=== PATIENT | female | born 1995 | race Caucasian/White ===

== ENCOUNTER → 2017-06-30 18:45 | Observation (INO) ==
--- NOTE | 2017-06-30 16:44 | OB/GYN Progress Note ---
Date of Encounter: 06/30/17 Time of Encounter: 16:39 - Assessment and Plan (1) 38 weeks gestation of Current Visit: Yes Status: Acute (2) Amniotic fluid leaking Current Visit: Yes Status: Acute SSE with physiologic appearing discharge. No pooling, negative nitrazine, negative fern. (3) Uterine contractions Current Visit: Yes Status: Acute Initial SVE 80/-1. Will repeat SVE in 1-2 hours. Subjective - Subjective Principal diagnosis: leaking, back pain Interval history: 22 year-old presenting at 38w4d with c/o leaking fluid and lower back cramping since 10pm last evening. She denies any large gushes of fluid but reports constant small amounts of fluid. No bleeding or other complaints. Good FM. Antepartum ROS: loss of fluid, movement normal, contractions, no vaginal bleeding Objective - Vital Signs Vital Signs: Intake and Output 06/30/17 06/30/17 06/30/17 07:59 15:59 23:59 Other: Weight 65.3 kg Patient Weight 06/30/17 23:59 Weight 65.3 kg - Exam FHR: category 1 FHR comments: 145 BPM reactive NST Auscultation: bilateral: normal Abdomen: Present: soft Uterus: Present: normal Cervical dilation: 3 Cervix effacement: 80 station: -1
[2017-06-30 17:27] LABS: Amphetamine Screen,Urine Negative ng/mL (Cutoff=1000); Barbiturate Screen,Urine Negative ng/mL (Cutoff=200); Benzodiazepines Screen,Urine Negative ng/mL (Cutoff=200); Cannabinoid Screen,Urine Negative ng/mL (Cutoff = 50); Cocaine Screen,Urine Negative ng/mL (Cutoff= 300); Opiate Screen,Urine Negative ng/mL (Cutoff=300); Phencyclidine Screen,Urine Negative ng/mL (Cutoff=25)
== END | disposition home or self-care (01) ==
LOC: 1NENULAB
PROVIDERS: ADMIT Student in an Organized Health Care Education/Training Program; ATTEND Student in an Organized Health Care Education/Training Program

== ENCOUNTER 2017-07-02 21:55 | Inpatient (IN) ==
[~2017-07-02 21:55] MED LIST: Famotidine 20 MG/2 ML VIAL IVP PRN; Naloxone 0.4 MG/ML INJ IVP PRN; Ondansetron 4 MG/2 ML VIAL IVP PRN
[2017-07-02] MEDS ORDERED: Ringers Solution, Lactated 1,000 ML IVC SCH (22:00)
[2017-07-02 22:14] LABS: Basophils # 0.1 K/mcL (0.0-0.2); Basophils % 0.6 %; Eosinophils # 0.2 K/mcL (0.0-0.6); Eosinophils % 2.1 %; Hematocrit 36.9 % (35.3-44.9); Immature Granulocytes % 1.1 % (0-4); Immature Platelets 9.7 % (1.1-6.1); Lymphocytes # 3.2 K/mcL (0.6-4.6); Lymphocytes % 28.5 %; Mean Corpuscular HGB Conc 35.2 g/dL (31.6-35.5); Mean Corpuscular Hemoglobin 32.2 pg (28.0-33.3); Mean Corpuscular Volume 91.3 fL (83.0-100.0); Mean Platelet Volume 11.3 fL (9.4-12.4); Monocytes # 0.9 K/mcL (0.0-1.3); Monocytes % 8.2 %; Neutrophils # 6.7 K/mcL (1.6-8.9); Platelet Count 212 K/mcL (140-400); Red Blood Count 4.04 M/mcL (3.82-4.97); Red Cell Distribution Width 11.9 % (11.5-14.5); Segmented Neutrophils % 59.5 %
[2017-07-02 22:26] LABS: Amphetamine Screen,Urine Negative ng/mL (Cutoff=1000); Barbiturate Screen,Urine Negative ng/mL (Cutoff=200); Benzodiazepines Screen,Urine Negative ng/mL (Cutoff=200); Cannabinoid Screen,Urine Negative ng/mL (Cutoff = 50); Cocaine Screen,Urine Negative ng/mL (Cutoff= 300); Opiate Screen,Urine Negative ng/mL (Cutoff=300); Phencyclidine Screen,Urine Negative ng/mL (Cutoff=25)
--- NOTE | 2017-07-02 22:36 | OB/GYN History & Physical ---
Date of Encounter: 07/02/17 Time of Encounter: 22:32 Assessment and Plan (1) 38 weeks gestation of Current visit: No Status: Acute (2) Amniotic fluid leaking Current visit: No Status: Acute SSE +pooling, +nitrazine, +fern Admit for expectant managment. Allow ambulation with intermittent monitoring at this time. Will augment with cytotec or pitocin if needed for adequate contractions. GBS negative. Anticipate . History of Present Illness Chief complaint: leaking fluid HPI: Ms. Bowling is a 22 year old female presenting at 38w6d with c/o a gush of clear/cloudy fluid at 8:32pm. She denies regular contractions, VB or other complaints. Good FM. This was complicated by a marginal placenta previa that spontaneously resolved. Blood type A positive. GBS negative, Rubella and varicella immune. HIV,Tpal, and Hep B negative. Past Med Surg Social Fam HX - Past Medical History Medical history: no medical history Psychiatric history: no psych history - Past Surgical History Surgical History: other - Social History Smoking Status: Never smoker Smokeless Tobacco Status: No Alcohol use: none Drug use: none - Family History Mother Adopted: No Family Member Ethnicity: Non- Living Status: Still Living Hx Family Cardiac Disorders: No Hx Family Respiratory Disorders: No Hx Family Cancer: No Hx Family GI Disorders: No Hx Family Genitourinary Disorders: No Hx Family Endocrine Disorder: No Hx Family Musculoskeletal Disorders: No Hx Family Neuromuscular Disorders: No Hx Family Neurologic Disorders: No Hx Family HEENT Disorders: No Hx Family Autoimmune Disorders: No Hx Family Reproductive Disorders: No Hx Family Psychosocial Disorders: No Hx Family Medical Disorders: No Obstetrical History - Pregnancies : 1 Medications and Allergies Calcium Carbonate [Tums] 500 mg PO Q4H PRN 06/30/17 [History] Vit/Iron Fumarate/FA [ Tablet] 1 each PO DAILY 06/30/17 [ History] Ranitidine HCl [Zantac] 150 mg PO BID PRN 06/30/17 [History] 3 Allergy/AdvReac Type Severity Reaction Status Date / Time No Known Allergies Allergy Verified 06/30/17 15:59 Review of System OB All systems PM: reviewed and no additional remarkable complaints except as stated - Constitutional Constitutional ROS IM: as per HPI Exam - Constitutional Constitutional: well developed, well nourished, no acute distress - HEENT HEENT: Mucus Membranes Moist - Lungs Respiratory exam: CTAB - Cardiovascular Cardiovascular exam: RRR - Abdomen Abdomen: Present: gravid, non tender - Extremities Extremities exam: normal inspection - Vulva Vulva: bilateral: normal - Vagina Vagina: Present: normal moisture (SSE with +pooling, +nitrazine, +fern) - Cervix Dilation: 3 (3-4) Effacement: 80 Station: -2 - Uterus Uterus exam: Present: normal size - Anus/Rectum Anus/Rectum: Present: normal perianal skin Results Result Diagrams: 07/02/17 10:05 Abnormal lab results WBC 11.3 K/mcL (4.3-11.1) H 07/02/17 10:05 Immature Plt Fraction 9.7 % (1.1-6.1) H 07/02/17 10:05 All other labs normal. - VTE Reasons for not Prescribing Prophylaxis: Treatment not Indicated - Low risk for VTE
--- NOTE | 2017-07-02 23:34 | OB Labor Progress Note ---
Date of Encounter: 07/02/17 Time of Encounter: 23:33 Labor Progress Note - Subjective Subjective: Pt reports mild discomfort with contractions. - Cervix Cervix: 3-4/80/-1 - Heart Tones Heart Tones: Category I - [place]: irregular - Plan Plan: Will allow pt to ambulate in hallway and then begin augmentation of labor.
[2017-07-03] MEDS ORDERED: miSOPROStol 100 MCG TABLET PO SCH
[2017-07-03] MEDS ORDERED: Oxytocin 20 units/ LR 1000 mL 20 UNIT/1,000 ML BAG IVC SCH ×2 (00:30→12:20)
--- NOTE | 2017-07-03 00:56 | OB Labor Progress Note ---
Date of Encounter: 07/03/17 Time of Encounter: 00:55 Labor Progress Note - Subjective Subjective: Pt reports increasing discomfort with contractions. - Cervix Cervix: 4-5/90/-1 - Heart Tones Heart Tones: Category I - [place]: irregular - Interventions Interventions: IUPC placed. - Plan Plan: Plan for pitocin augmentation. Epidural when requested. Anticipate .
[2017-07-03] MEDS ORDERED: *HR* FentaNYL (PF) 100 MCG/2 ML VIAL EP ONE (01:23)
[2017-07-03] MEDS ORDERED: Naloxone 0.4 MG/ML INJ IVP PRN (01:23)
[2017-07-03] MEDS ORDERED: Ondansetron 4 MG/2 ML VIAL IVP PRN (01:23)
[2017-07-03] MEDS ORDERED: Bupivacaine-MPF 0.25% 10 ML VIAL EP ONE (01:23)
[2017-07-03] MEDS ORDERED: EPHEDrine 50 MG/ML VIAL IVP PRN (01:23)
[2017-07-03] MEDS ORDERED: Epidural Premix (fent/bupiv) 110 ML EP SCH (01:30)
[2017-07-03] MEDS ORDERED: Bupivacaine-MPF 0.25% 10 ML VIAL ONE (01:36)
[2017-07-03] MEDS ORDERED: *HR* FentaNYL (PF) 100 MCG/2 ML VIAL ONE (01:36)
[2017-07-03] MEDS ORDERED: Epidural Premix (fent/bupiv) 110 ML EP ONE ×2 (01:38→09:01)
--- NOTE | 2017-07-03 03:00 | Anesthesia Evaluation PreOp ---
Date of Encounter: 07/03/17 Time of Encounter: 01:55 - Past History Planned Operation: BEULAH Cardiac History: Denies any Significant Hx Pulmonary History: Denies Any Significant HX SHOW HORSE DRIVER History: Denies Any Significant HX Other Medical History: GERD Anesthesia History: No Prior Anesthetic Complications, Past Anesthesia (wisdom teeth extraction) : Yes Alcohol Use: none Drug use: none Medications and Allergies Calcium Carbonate [Tums] 500 mg PO Q4H PRN 06/30/17 [History] Vit/Iron Fumarate/FA [ Tablet] 1 each PO DAILY 06/30/17 [ History] Ranitidine HCl [Zantac] 150 mg PO BID PRN 06/30/17 [History] 3 Allergy/AdvReac Type Severity Reaction Status Date / Time No Known Allergies Allergy Verified 06/30/17 15:59 - Meds/Allergy Pre-op Review Medications Reviewed: Yes Allergies Reviewed: Yes Beta Blockers on Current Med List: No Anesthesia Results - Labs 07/02/17 10:05 Anesthesia Exam BP 142/82 R 18 T 98.7 P 101 Height: 5'6" Weight: 65.3kg NPO (# of Hours): 4 Pain Scale: 8 Pain Scale Used: Numeric (1 - 10) - HEENT Pupil (Motor): Pupils equal Mallampati: II Teeth: Normal Oral Opening: Greater than 3 - SHOW HORSE DRIVER LOC: Oriented SHOW HORSE DRIVER Motor: Normal RUE, Normal LUE, Normal RLE, Normal LLE, Normal Face SHOW HORSE DRIVER Sensory: Normal: RUE, LUE, RLE, LLE, Face - Cardiac Rhythm: Regular Murmur: None JVD: No Carotid Bruit: No - Pulmonary Breath Sounds: bilateral Clear Respiratory Effort: Symmetrical Anesthesia Assess/Plan ASA Score: 2 Modified Charles Scale for Level of Consciousness: Cooperative, oriented, and tranquil Anesthetic Plan: Regional Autologous Blood: No Monitoring Plan: Standard Monitors Recovery Plan: Other
--- NOTE | 2017-07-03 03:05 | Anesthesia Procedures ---
Date of Encounter: 07/03/17 Time of Encounter: 01:55 Procedures: Anesthesia - Epidural/Spinal Patient ID/Chart reviewed: Yes Patient examined: Yes OB Eval: Gestational age: 39 OB Eval: : 1 OB Eval: Hx Para: 0 OB Eval: Dilated at (cm): 5 OB Eval: Contractions: Non-stressed pattern Consent Obtained: Yes Supplemental Oxygen: None/Room Air Site Prep: Aseptic Technique, Sterile prep and drape, Povidone-Iodine 1% Patient position: upright Local Anesthetic: Lidocaine 1% Amount of Local Anesthetic used: 3 Touhy Needle Gauge: 18 Touhy Needle Depth (cm): 5 Catheter Depth at Skin (cm): 14 Test Dose (1.5% Lido + Epi): Volume given (mls): 3 Test Dose Result: Negative Loading Dose: 0.25% Marcaine (mls): 10 Loading Dose: Fentanyl (mcg): 100 Loading Dose Administered: Thru Catheter Infusion Med: 0.125% Bupivacaine w/ 2 mcg/ml Fentanyl Catheter Secured in Place: Tegaderm, Tape Interspace Used: L4-L5 Loss of Resistance (HIMANSHU): Yes Blood: No CSF: No Paresthesia: No Procedure: BEULAH placed 1st pass without any immediate noted complications. VSS and FHT stable throughout. Vitals + FHT's: 0155 BP 142/82 P 101 R 18 0230 BP 122/80 P 80 R 16
--- NOTE | 2017-07-03 08:57 | OB Labor Progress Note ---
Date of Encounter: 07/03/17 Time of Encounter: 08:55 Labor Progress Note - Subjective Subjective: Patient comfortable with epidural, feels contractions in her back and pressure vaginally with contractions. - Vital Signs Vital Signs: Afebrile, vital signs stable - Cervix Cervix: Complete, +1 with small amount of caput per RN - Heart Tones Heart Tones: 120 CAT1 - Valeria Valeria: Contractions every 1-3 minutes, 30-50 mmHg, Pitocin at 4 milliunits - Interventions Interventions: 39 week IUP with spontaneous rupture of membranes, now with augmentation. Patient on PNUT ball currently. She did not push well previously - Plan Plan: Laboring down, anticipate vaginal delivery
--- NOTE | 2017-07-03 11:00 | OB/GYN Procedure Note ---
Delivery - Delivery Date: 07/03/17 Provider: Donna Chapman Intrapartum events: none Delivery augmentation: pitocin Delivery monitor: external FHT, external uterine, internal uterine Anesthesia: epidural Estimated Blood Loss: 200 - (s) Infant A Delivery Date: 07/03/17 Delivery Time: 10:33 Presentation: vertex Position: DOMITILA Route of delivery: Gender: Male Viability: Viable Pounds: 6 Ounces: 15 at 1 minute: 9 at 5 mins: 9 Shoulder Dystocia: not encountered Placenta: spontaneous, uterine exploration Cord: 3 umbilical vessels - Repair Episiotomy: none Laceration Description: Vaginal, Labial (left) - Complications Delivery complications: none Delivery comments: The patient was complete and pushing with epidural anesthesia with a spontaneous vaginal delivery in the DOMITILA position of a vigorous male infant weighing 6 lbs. 15 oz. with Apgars of 9 at 1 minute and 9 at 5 minutes. was placed on maternal abdomen. Cord was clamped and cut after pulsation ceased. Placenta was delivered spontaneous and intact. Left vaginal laceration was repaired with 3-0 Vicryl in a running locking fashion. This laceration extended into the left labia and this was repaired with 3-0 Vicryl in a running non-locking fashion. Estimated blood loss 200 mL, complications none. Both mother and recovering in stable condition in the LDR - Disposition Mom disposition: stable in LDR disposition: stable in LDR
[2017-07-03] MEDS ORDERED: Acetaminophen 325 MG TABLET PO PRN (12:20)
[2017-07-03] MEDS ORDERED: Ibuprofen 600 MG TABLET PO SCH (12:20)
[2017-07-03] MEDS ORDERED: Measles/Mumps/Rubella Vacc 0.5 ML VIAL SQ PRN (12:20)
[2017-07-04 07:11] LABS: Basophils # 0.1 K/mcL (0.0-0.2); Basophils % 0.4 %; Eosinophils # 0.4 K/mcL (0.0-0.6); Eosinophils % 2.6 %; Hematocrit 29.8 % (35.3-44.9); Immature Granulocytes % 1.2 % (0-4); Lymphocytes # 3.5 K/mcL (0.6-4.6); Lymphocytes % 21.7 %; Mean Corpuscular HGB Conc 34.6 g/dL (31.6-35.5); Mean Corpuscular Hemoglobin 32.2 pg (28.0-33.3); Mean Corpuscular Volume 93.1 fL (83.0-100.0); Mean Platelet Volume 11.1 fL (9.4-12.4); Monocytes # 1.1 K/mcL (0.0-1.3); Monocytes % 7.1 %; Neutrophils # 10.6 K/mcL (1.6-8.9); Platelet Count 163 K/mcL (140-400); Red Cell Distribution Width 12.2 % (11.5-14.5)
[2017-07-04 07:12] LABS: Hemoglobin 10.3 g/dL (11.5-15.4)
[2017-07-04 08:18] VITALS: BP 121/78
--- NOTE | 2017-07-04 08:53 | Discharge Summary ---
Date of Encounter: 07/04/17 Time of Encounter: 08:49 - Discharge Diagnosis (1) Vaginal delivery Priority: Primary Status: Acute Comments: Patient came to L&D 38w6d . Patient had vaginal delivery on 07/03/17. Healthy baby boy. Patient is doing well and states that she is ready to go home. Patient has been able to get up an walk, pass urine, pass gas but states that she is still having some vaginal bleeding. Tolerating regular diet. She is currently breast feeding. (2) Breast feeding status of mother Priority: Secondary Status: Acute Comments: Patient is breast feeding. Informed that we have consultants as well as consultants available at [facility]. Patient denies any difficulties with feeding at this time. We will write a prescription for a breast pump - Discharge Medications Prescriptions: Ibuprofen [Motrin] 600 mg PO Q6HR #60 tablet Breast Pump [BREAST PUMP] 1 each .ROUTE AD #1 each Docusate [Colace] 100 mg PO BID #30 capsule Ferrous Sulfate 325 mg PO DAILY #60 tablet Home Medications: Vit/Iron Fumarate/FA [ Tablet] 1 each PO DAILY 06/30/17 [ History] Breast Pump [BREAST PUMP] 1 each .ROUTE AD #1 each 07/04/17 [Rx] Docusate [Colace] 100 mg PO BID #30 capsule 07/04/17 [Rx] Ferrous Sulfate 325 mg PO DAILY #60 tablet 07/04/17 [Rx] Ibuprofen [Motrin] 600 mg PO Q6HR #60 tablet 07/04/17 [Rx] Allergies/Adverse Reactions: 3 Allergy/AdvReac Type Severity Reaction Status Date / Time No Known Allergies Allergy Verified 06/30/17 15:59 Data Procedures and tests throughout hospitalization: Laboratory Tests 07/02/17 07/02/17 07/04/17 10:05 22:12 06:58 WBC 11.3 H 15.9 H RBC 4.04 3.20 L Hgb 13.0 10.3 L D Hct 36.9 29.8 L MCV 91.3 93.1 MCH 32.2 32.2 MCHC 35.2 34.6 RDW 11.9 12.2 Plt Count 212 163 MPV 11.3 11.1 Immature Gran % 1.1 1.2 Seg Neutrophils % 59.5 67.0 Lymphocytes % 28.5 21.7 Monocytes % 8.2 7.1 Eosinophils % 2.1 2.6 Basophils % 0.6 0.4 Neutrophils # 6.7 10.6 H Lymphocytes # 3.2 3.5 Monocytes # 0.9 1.1 Eosinophils # 0.2 0.4 Basophils # 0.1 0.1 Immature Plt Fraction 9.7 H Urine Opiates Screen Negative Ur Barbiturates Screen Negative Ur Phencyclidine Scrn Negative Ur Amphetamines Screen Negative U Benzodiazepines Scrn Negative Urine Cocaine Screen Negative U Marijuana (THC) Screen Negative Labs on day of discharge: Labs from last 24 hours 07/04/17 06:58 WBC 15.9 H RBC 3.20 L Hgb 10.3 L D Hct 29.8 L MCV 93.1 MCH 32.2 MCHC 34.6 RDW 12.2 Plt Count 163 MPV 11.1 Immature Gran % 1.2 Seg Neutrophils % 67.0 Lymphocytes % 21.7 Monocytes % 7.1 Eosinophils % 2.6 Basophils % 0.4 Neutrophils # 10.6 H Lymphocytes # 3.5 Monocytes # 1.1 Eosinophils # 0.4 Basophils # 0.1 Date of admission: 07/02/17 21:55 Primary care physician: PCP NONE Consults: 07/03/17 12:20 Consult to Reverse Unit Operator [CONS] Routine Comment: Vaginal delivery, consult needed Discharging clinician: Cheryl Baca Anticipated date of discharge: 07/04/17 - Patient Status Disposition: Home, Self-Care Condition: Good Functional capacity at discharge: independent ambulation Overall status at discharge: patient is progressing back to baseline - Discharge Instructions Follow Up With: NONE,PCP [Primary Care Provider] - Rachel Shafer DO [Partnered Physician] - Additional Instructions: Perineal Care: Always wipe front to back Change your pad frequently Use your lon bottle with warm water and spray front to back Do not douche, use tampons, have sexual intercourse or put anything in your vagina for 4-6 weeks after delivery Bleeding: Vaginal bleeding can last up to 6 weeks Your menstrual period may return as early as 6 weeks after you are discharged from the hospital [place]/Stitches Care: Vaginal Delivery Vaginal stitches will dissolve within 4-6 weeks Follow perineal care instructions Care Stitches will dissolve on their own If you have jodi, they will need to be removed in the doctors office within 5-7 days. You may shower with stitches or jodi Drip plan or soapy water over the incision to clean. Pat dry gently with a clean towel. Make sure you completely dry under the skin folds DO NOT USE powders, lotions, rubbing alcohol or hydrogen peroxide on or around your incision. This will slow your wound healing It is normal to have soreness, burning, tingling, itchiness and/or numbness as your incision heals Activity: Rest frequently Do not lift anything heavier than a gallon of milk, up to 10-15 pounds No driving for 1-2 weeks for Vaginal delivery No driving for 2-4 weeks for delivery Take stairs slowly, one at a time Gradually increase your daily activity until you are back to your normal routine Do not exercise until you have had your follow-up appointment Bathing: Take a shower daily Do not take a tub bath for the first 4 weeks Diet: Drink plenty of water and fruit juices Eat a well-balanced diet with foods high in fiber such as fruits and vegetables Depression: Your hormones have a major impact on your feelings and emotions. Hormone imbalance may cause changes in your mood, creating unfamiliar thoughts and actions. Support is available to help you understand and cope with these feelings and mood changes. If you answer yes to any of the following questions, please call your health care provider: Are you having trouble sleeping? Are you feeling isolated? Have you lost your appetite? Are you having thoughts of hurting yourself or others? WARNING SIGNS: Heavy bleeding from the vagina (blood is bright red and soaks a sanitary pad in an hour or less.) Passing a blood clot larger than your fist Discharge from the vagina that has a bad odor Temperature over 100.4 F, or if you feel cold and have chills An episiotomy site that is warm, swollen or oozing. Use a mirror if needed Urination (pee) that is painful, very red and swollen or leaking fluid An incision that is painful, very red and swollen and leaking fluid An incision that has come open Breasts that are painful or full with flu like symptoms Redness, warmth or swelling in the calf of your leg Trouble breathing, dizziness, visual disturbance or faintness *Notify your health care provider immediately or go to the nearest Emergency Room if you experience any of the above signs.* To contact the nurses station 24 hours a day, For non-urgent, routine questions, please call the office at - Diet and Activity Activity: increase activity as tolerated Diet: advance to your usual diet Hospital Course Reason for admission: active labor Delivery: Episiotomy: none Laceration: other (Left labial laceration) complications: none Discharge diagnosis: IUP at term delivered baby: male Hospital course: - Delivery Date: 07/03/17 Provider: Donna Chapman Intrapartum events: none Delivery augmentation: pitocin Delivery monitor: external FHT, external uterine, internal uterine Anesthesia: epidural Estimated Blood Loss: 200 - (s) A Infant Delivery Date: 07/03/17 Delivery Time: 10:33 Presentation: vertex Position: DOMITILA Route of delivery: Gender: Male Viability: Viable Pounds: 6 Ounces: 15 at 1 minute: 9 at 5 mins: 9 Shoulder Dystocia: not encountered Placenta: spontaneous, uterine exploration Cord: 3 umbilical vessels - Repair Episiotomy: none Laceration Description: Vaginal, Labial (left) - Complications Delivery complications: none Delivery comments: The patient was complete and pushing with epidural anesthesia with a spontaneous vaginal delivery in the DOMITILA position of a vigorous male weighing 6 lbs. 15 oz. with Apgars of 9 at 1 minute and 9 at 5 minutes. Infant was placed on maternal abdomen. Cord was clamped and cut after pulsation ceased. Placenta was delivered spontaneous and intact. Left vaginal laceration was repaired with 3-0 Vicryl in a running locking fashion. This laceration extended into the left labia and this was repaired with 3-0 Vicryl in a running non-locking fashion. Estimated blood loss 200 mL, complications none. Both mother and recovering in stable condition in the LDR - Disposition Mom disposition: stable in . Appropriate for discharge. Time Attestation: Total time spent providing and/or coordinating discharge services: Time Spent: Less than 30 minutes Exam - Constitutional Vitals: Temp Pulse Resp BP Pulse Ox 97.9 F 76 16 121/78 98 07/04/17 08:14 07/04/17 08:14 07/04/17 08:14 07/04/17 08:14 07/04/17 06:00 General appearance IM: A&O X 3, pleasant, no acute distress - Respiratory Respiratory exam: Present: CTAB - Cardiovascular Cardiovascular exam IM: Present: RRR, +S1, +S2 - GI/Abdominal GI/Abdominal exam IM: normal bowel sounds - Uterine Tone: Firm Uterus Position: At Umbilicus - Extremities Exam Extremities exam IM: Present: full ROM - Neurological Exam Neurological exam: alert, oriented X3 - Psychiatric Additional comments: reports good mood
[2017-07-04] MEDS ORDERED: Prenatal Vit/FA 1 EACH TABLET PO SCH (09:00)
[2017-07-04] MEDS ORDERED: Lanolin 7 G OINT...G. TP PRN (09:26)
== END 2017-07-04 12:04 | disposition home or self-care (01) | DRG 774 ==
LOC: 1NENULAB → 1NENUOBS 07-03 13:11
PROVIDERS: ADMIT Obstetrics & Gynecology; ATTEND Obstetrics & Gynecology